=== PATIENT | female | born 2000 | race Hispanic/Latino ===

== ENCOUNTER 2020-10-18 18:42 | Outpatient (CLI) | payer OTHER ==
[~2020-10-18] VITALS: Ht 147.3 cm; Wt 67.3 kg
--- NOTE | 2020-10-18 19:30 | IPNPDOC ---
Obstetrical Progress Note Date of Service Oct 18, 2020 Subjective Ms. Pate is a 20yo at 39wk who presents for a labor check. She denied VB, LOF, decreased FM. Her contractions were initially every 20 min all day today and now they are every 10 minutes so she came in to be evaluated. Assessment Heart Rate (FHR): 140 Variability: Moderate Accelerations: Positive Decelerations: None Heart Rate Tracing: Category I Tocometer Contractions: Yes Frequency: irregular Sterile Vaginal Examination Dilation: None Station: -3 Cervical Consistency: Firm Cervical Position: Posterior Postion/Presentation: Cephalic presentation (by US) Assessment and Plan Additional Comments Ms. Pate is a 20yo at 39wk who presents for a labor check. VS normal. CAT I tracing, reactive. Irregular contractions on monitor. SVE C/T/H. Ceph by US. MVP 4cm. +FM on TAUS. Imminent active labor is unlikely at this time. Provided with routine OB return precautions. Otherwise to follow up at next KELSEY FREIRE DO Oct 18, 2020 19:30
--- NOTE | 2020-10-19 03:37 | REPVR ---
PROCEDURE INFORMATION: Exam: US Biophysical Profile Without Non-Stress Test Exam date and time: 10/18/2020 8:40 PM Age: 20 years old Clinical indication: Other: Fetus notmoving; ; Additional info: Bpp TECHNIQUE: Imaging protocol: US biophysical profile without non-stress testing. COMPARISON: No relevant prior studies available. FINDINGS: Gestation: Single intrauterine fetus. heart rate: heartbeat of 147 bpm. Presentation: Cephalic presentation. Placenta: Anterior placenta. Amniotic fluid index: Normal HERMES of 16.2 cm. BIOPHYSICAL PROFILE: Breathin/2 Gross body movements: 2/2 tone: 2/2 Qualitative amniotic fluid: 2/2 Biophysical Profile Score: 8/8 MATERNAL ANATOMY: Cervix: The cervix is closed measuring 4.0 cm. IMPRESSION: 1. Single live intrauterine fetus in cephalic presentation. 2. Normal HERMES of 16.2 cm. 3. Normal biophysical profile with score of 8/8. Electronically signed by: Mason Fuentes On 10/19/2020 03:38:20 AM
== END 2020-10-18 22:31 | disposition home or self-care (01) ==
LOC: M LDO 18:42
PROVIDERS: ATTEND Obstetrics & Gynecology
DX: O47.1 False labor at or after 37 completed weeks of gestation (principal); Z3A.39 39 weeks gestation of pregnancy
CPT/HCPCS: 59025; 76815; 76819; 76820; G0378; G0463

== ENCOUNTER 2020-11-17 16:59 | Outpatient (CLI) | payer OTHER ==
[~2020-11-17] VITALS: Ht 147.3 cm; Wt 70.0 kg
[2020-11-17 17:13] VITALS: BP 109/64
[2020-11-17] MEDS ORDERED: IRON1TAB2 PO (17:15)
[2020-11-17 18:31] VITALS: BP 99/63
== END 2020-11-17 18:46 | disposition home or self-care (01) ==
LOC: M LDO 16:59
PROVIDERS: ATTEND Registered Nurse
DX: O23.43 Unspecified infection of urinary tract in pregnancy, third trimester (principal); Z3A.35 35 weeks gestation of pregnancy; O99.013 Anemia complicating pregnancy, third trimester; D64.9 Anemia, unspecified; O98.313 Other infections with a predominantly sexual mode of transmission complicating pregnancy, third trimester; A63.0 Anogenital (venereal) warts
CPT/HCPCS: 59025; G0378; G0463

== ENCOUNTER 2020-11-29 10:44 | Inpatient (IN) | payer OTHER ==
[~2020-11-29] VITALS: Ht 147.3 cm; Wt 69.8 kg
[2020-11-29] VITALS (8 sets, daily range): BP systolic 105–135; BP diastolic 55–75
[~2020-11-29 10:44] MED LIST: IRON1TAB2 PO
[2020-11-29] MEDS ORDERED: VALT500T PO (12:05)
[2020-11-29] MEDS ORDERED: URSO300C3 PO (12:05)
--- NOTE | 2020-11-29 12:18 | HPEPDOC ---
Obstetrical History & Physical General Date of Admission November 29, 2020 at 10:44 History of Present Illness 20yo G1 at 37w2d ega, at 37w2d ega, by LMP c/w 1st trimester ultrasound, who pre sents for an IOL for presumed cholestasis of . Mrs. Pate presented to the clinic today reporting progressively worsening itching of the palms & soles over the past week. She also reported decreased movement over the past week. She also reports regular, painful uterine contractions. Otherwise, she denies VB & LOF. Chief Complaint: Other (Presumed cholestasis of ) Past Medical History Past Obstetrical History : Past Obstetrical History: Primgravida Past Medical History Medical History Genital Warts; HSV 1 & 2; Anemia of , Migraines with Aura Social History Marital Status: Family situation: Spouse/partner home Psychosocial History: No pertinent psych hx * Smoker: non-smoker Alcohol: Denies Drugs: denies Abuse Violence Screening Have you been hit/kicked/slapp: No Have you been sexually assault: No Imunizations Tdap status: current Influenza Status: current Medications Scheduled Ferrous Sulfate (Iron) 325 Mg Tablet, 1 TAB PO DAILY Physical Examination Physical Examination GENERAL: Alert and oriented times three. BREAST: . ABDOMEN: Gravid and non-tender to touch. FETUS: Is vertex (VTX) by sterile vaginal examination (SVE), fetus is vertex (VTX) by César. HEART RATE: Regular rate and rhythm. LUNGS: Clear to auscultation (CTA). EXTREMITIES: No edema. No clonus. Deep tendon reflexes (DTRs) SSE: Vesicular lesions on the cervix c/w a Primary HSV outbreak Vital Signs/I&O Vital Signs Date Time Temp Pulse Resp B/P (MAP) Pulse Ox O2 Delivery O2 Flow Rate FiO2 11/29/20 10:59 97.7 96 16 135/75 (95) Laboratory Data 24H LABS Laboratory Tests 2 11/29/20 10:56: Serology Scanned Report Hepatitis B Testing Pertinent Laboratoy Data Blood Type: A+ RBC Antibody Screen: Negative HIV: Negative Hepatitis B: Negative Hepatitis C: Negative Rapid Plasma Reagin: Immune Rubella: Immune Varicella: Immune Chlamydia/Gonorrhea: Negative Group B Streptococcus: Negative Quad Screen Test: Unknown Cystic Fibrosis: Unknown Anatomy Ultrasound Ultrasound Date: Nov 02, 2020 Placenta Location: Anterior Normal Anatomy: Yes Placenta Previa: No Steroid Therapy Steroid Therapy: No Assessment Heart Rate (FHR): 130 Variability: Moderate Accelerations: Positive Decelerations: None Tocometer Contractions: Yes Frequency: irregular Multi-drug resistant Organism: No history of MDRO Assessment/Plan Assessment Mrs. Pate is a 20-year-old G1 at 37+2weeks by LMP c/w 1st trimester ultrasound. Presents to Labor and Delivery (L&D) for IOL secondary to presumed cholestasis of . Patient was found to have vesicular cervical lesions with h/o + HSV 1 & 2 IgG. Will proceed to OR for a Primary Low Transverse Section. Plan Admit and orient. Career Development Coordinator and consent. Diet: NPO Group B Streptococcus (GBS) negative. Labs and intravenous (IV) per unit protocol. Counseled on Primary Low Transverse Section. Lactated Ringers (LR): at 125mL/hr. Anticipate Primary Low Transverse Pt was counseled on the R/B/I/A of PLTCS and agreed to move forward Ancef 2 grams iv x1 30 minutes prior to PLTCS BERE CLEARY M.D. November 29, 2020 12:18
[2020-11-29] MEDS ORDERED: TRANEXAMIC ACID INJection 1,000 MG in NS 100 ML IV PRN (12:20)
[2020-11-29] MEDS ORDERED: METHYLERGONOVINE MALEATE 0.2 MG/ML VIAL (J2210) IM PRN (12:20)
[2020-11-29] MEDS ORDERED: BICITRA 30ML SOLN UDC PO ONE (12:20)
[2020-11-29] MEDS ORDERED: CARBOPROST TROMETHAMINE 250 MCG/ML AMP IM PRN (12:20)
[2020-11-29] MEDS ORDERED: OXYTOCIN DRIP 30 UNITS in IV 1 EA IV PRN ×4 (12:20)
[2020-11-29] MEDS ORDERED: ACETAMINOPHEN 650 MG SUPP PR SCH (12:20)
[2020-11-29] MEDS ORDERED: ceFAZolin SOD 2 GM in IV 1 EA IV ONE (12:20)
[2020-11-29 13:00] LABS: HEMOGLOBIN 11.1 g/dl (12.0-15.5); MEAN CORPUSCULAR HEMOGLOBIN 28.8 pg (27.0-33.0); MEAN CORPUSCULAR HGB CONC 32.6 g/dl (32.0-36.5); MEAN CORPUSCULAR VOLUME 88.1 fl (80.0-96.0); PLATELET COUNT, AUTOMATED 233 10^3/uL (150-450); RED BLOOD COUNT 3.86 10^6/uL (4.00-5.40); WHITE BLOOD COUNT 11.3 10^3/uL (4.0-10.0)
[2020-11-29] MEDS: LR 1,000 ML IV SCH ×3 (13:17→18:15)
[2020-11-29] MEDS ORDERED: ONDANSETRON 4MG/2ML VIAL IV PRN ×2 (15:43→17:05)
[2020-11-29] MEDS ORDERED: NALBUPHINE HCL 10 MG/ML AMP (J2300) IV PRN (15:43)
[2020-11-29] MEDS ORDERED: diphenhydrAMINE 50MG/ML VIAL (J1200) IV PRN (15:43)
[2020-11-29] MEDS ORDERED: METOCLOPRAMIDE INJ 10MG/2ML VIAL (J2765 PER 1) IV PRN (15:43)
[2020-11-29] MEDS ORDERED: NALOXONE INJ 0.4MG/1ML VIAL (J2310 PER 1MG) IV PRN ×2 (15:43)
[2020-11-29] MEDS ORDERED: ONDANSETRON 4MG/2ML VIAL As Ordered ONE (15:44)
[2020-11-29] MEDS ORDERED: OXYTOCIN 30 UNITS IN 0.9% NaCl 500ML IV BAG (J2590) As Ordered ONE (15:44)
[2020-11-29] MEDS ORDERED: MORPHINE PRES-FREE INJ 10 MG/10 ML VIAL (J2274) As Ordered ONE (15:44)
[2020-11-29] MEDS ORDERED: ePHEDrine SULFATE 25 MG/5 ML(5MG/ML) SYRINGE As Ordered ONE (15:48)
[2020-11-29] MEDS ORDERED: KETOROLAC 60MG 2ML VIAL As Ordered ONE (15:52)
[2020-11-29] MEDS ORDERED: PHENYLephrine 500MCG 5ML (100MCG/ML) SYRINGE As Ordered ONE (15:53)
[2020-11-29] MEDS ORDERED: KETOROLAC 30 MG/ML 1ML VIAL IV PRN (16:10)
[2020-11-29] MEDS ORDERED: SWEET-EASE NATURAL PRES FREE SOLUTION 15ML UDC PO PRN (16:15)
[2020-11-29] MEDS ORDERED: HEPATITIS B VAC *BIRTH DOSE ONLY*(ENGERIX) 10 MCG/0.5 ML SYRINGE IM ONE (16:15)
[2020-11-29] MEDS ORDERED: PHYTONADIONE 1 MG/0.5 ML SYRINGE (J3430) IM ONE (16:15)
[2020-11-29] MEDS ORDERED: ERYTHROMYCIN OPHTH OINT OU ONE (16:15)
[2020-11-29] MEDS ORDERED: BREAST MILK 1 BOTTLE PO PRN (16:15)
[2020-11-29 16:43] LABS: CORD GAS ABE A -0.9; CORD GAS HCO3 A 26.1 MEQ/L; CORD GAS O2 SAT A 53.9 %; CORD GAS PCO2 A 52.4 mmHg; CORD GAS PH A 7.316 UNITS; CORD GAS SBC A 22.5 MEQ/L; CORD GAS TCO2 A 27.8 MEQ/L
[2020-11-29 16:46] LABS: CORD GAS ABE V -3.2; CORD GAS HCO3 V 22.1 MEQ/L; CORD GAS O2 SAT V 82.9 %; CORD GAS PCO2 V 40.9 mmHg; CORD GAS PH V 7.351 UNITS; CORD GAS PO2 V 39.3 mmHg; CORD GAS SBC V 21.4 MEQ/L; CORD GAS TCO2 V 23.4 MEQ/L
--- NOTE | 2020-11-29 16:53 | ROOPDOC ---
[facility] Report Of Operation Report of Operation DATE OF PROCEDURE: 29 Nov 2020 PREPROCEDURE DIAGNOSIS: - Term Intrauterine at 37w2d ega - Cholestasis Of - Active Herpes Outbreak POSTPROCEDURE DIAGNOSIS: - Same As Above, delivered via Primary Low Transverse Section PROCEDURE: - Primary Low Transverse Section SURGEON: Idris Garcia M.D., Ph.D. INSTALLER MOLDING AND TRIM: Bhavin Dickey D.O. ESTIMATED BLOOD LOSS: 800cc URINE OUTPUT: 100cc clear, yellow urine INTRAVENOUS FLUIDS: 1000cc Lactated Ringers COMPLICATIONS: None REMARKS: None Operative Findings: Delivery was productive of a viable male in the cephalic presentation weighing 2880grams with APGARS 9/9. Normal appearing uterus, fallopian tubes, and ovaries. 2-grams of Ancef and Bicitra were administered pre-operatively. PROCEDURE NOTE: The risks, benefits, and alternatives of the procedure were reviewed with the patient and informed consent was obtained. The patient was taken to the OR where spinal anesthesia was administered without difficulty. The patient was prepped and draped in the normal fashion in the dorsal supine position with a leftward tilt. A hair catheter was placed in the bladder and a final time out was performed. A Pfannenstiel skin incision was then made with the scalpel and carried through to the underlying layer of fascia. The fascia was incised in the midline and the incision extended laterally with the Hernandez scissors. The superior aspect of the fascial incision was grasped with the Dave clamps, elevated, and the underlying rectus dissected from the fascia with the Hernandez scissors. Attention was then turned to the inferior aspect of the incision, which, in a similar fashion was grasped, tented up with the Dave clamps and the rectus muscles dissected off aided with the Hernandez scissors. Rectus muscles were then in the midline; the peritoneum identified, tented up, and entered bluntly. The peritoneal incision was then extended horizontal with good visualization of the bladder. The bladder blade was inserted. The vesicoperitoneum was then identified, grasped with pick-ups and entered sharply with Metzenbaum scissors. This incision was then extended laterally and the bladder flap created digitally. The bladder blade was then reinserted. Next, the lower uterine segment was incised in a transverse fashion with the scalpel. The uterine incision was then extended manually. The amniotic sac was artificially ruptured, productive of clear fluid. The infant was found to be in the OA presentation. The infants head and body were delivered atraumatically through the hysterotomy. The nose and mouth were suctioned with the bulb syringe, and the cord doubly clamped and cut. The was handed off to the awaiting Pediatricians. Cord gases were obtained. The placenta was then removed spontaneously with gentle traction on the umbilical cord; the uterus was exteriorized and cleared of all clots and debris. The uterine incision was repaired with O-monocryl in a running, locked fashion. An imbricating layer was not performed secondary to extensive venous sinuses on the superior & inferior aspects of the hysterotomy. The ovaries and fallopian tubes appeared normal. The posterior cul-de-sac was then irrigated. The uterus was returned to the abdomen and the hysterotomy was again noted to be hemostatic. The paracolic gutters were cleared of all clots and debris. The fascia was then re-approximated with 0-vicryl in a running fashion. The subcutaneous tissue was reapproximated with three - interrupted 2-O monocryl sutures. The skin was closed with 3-O monocryl on a Anthony needle in a subcuticular fashion. The incision was then dressed with Steri-strips and a pressure dressing applied. At the completion of the case, bimanual exam was perf ormed with good uterine tone and minimal vaginal bleeding. The patient tolerated the procedure well. Sponge, lap and needle counts were correct times three. The patient was taken to the recovery room in stable condition. IDRIS GARCIA M.D. November 29, 2020 16:53
[2020-11-29] MEDS ORDERED: oxyCODONE 5MG TAB PO PRN ×3 (17:05→18:30)
[2020-11-29] MEDS ORDERED: fentaNYL 100 MCG/2 ML INJECTION (J3010) IV PRN (17:05)
[2020-11-29] MEDS ORDERED: ACETAMINOPHEN TAB 650MG DOSE (2X325MG) PO PRN (18:30)
[2020-11-29] MEDS ORDERED: SIMETHICONE 80MG CHEW TAB PO PRN (18:30)
[2020-11-29] MEDS ORDERED: ACETAMINOPHEN 500 MG TAB PO PRN (18:30)
[2020-11-29] MEDS ORDERED: DOCUSATE SODIUM 100MG CAPSULE PO PRN (18:30)
[2020-11-30] MEDS: IBUPROFEN 800 MG TAB PO SCH ×3 (00:19→16:36)
[2020-11-30 02:00] VITALS: BP 100/51
[2020-11-30] MEDS ORDERED: LR 500 ML IV ONE (02:40)
[2020-11-30 06:15] VITALS: BP 101/63
--- NOTE | 2020-11-30 07:26 | IPNPDOC ---
Progress Note Date of Service: November 30, 2020 Day#: 1 Progress Note SUBJECT: Mrs. Bora Pate is a 20-year-old 1 now Para 1-0-0-1 status post uncomplicated Primary Low Transverse Section at 37-2/7 weeks' on 29 Nov 2020 that was productive of a viable male infant. This patient is doing well day #1. She has been ambulating, passing flatus, and tolerating regular diet. Her Olivier catheter was recently removed and she has a 4-hour Due-To-Void. Breast feeding without issue. Reports lochia is like a normal period. OBJECTIVE: VITAL SIGNS: Within normal limits, afebrile. Alert and oriented times three. Abdomen: Fundus firm at U-1. Soft, NTTP, Incision is clean, dry, and intact with steri strips Moderate lochia. ASSESSMENT: Mrs. Pate is a 20-year-old 1 now Para 1-0-0-1 status post uncomplicated Primary Low Transverse Section after presenting for induction of labor for cholestasis of and was found to have active HSV lesions on her cervix. Overall, she is hemodynamically stable and doing well on day 1. PLAN: 1. Likely discharge to home on Friday, 01 Dec 2020. 2. Oxycodone, Tylenol and Motrin for pain. 3. Encourage breast feeding and ambulation. 4. Will use condoms for contraception. 5. Routine PP visit in 6 weeks in clinic. 6. Discussed return precautions at length. Soila Stringer., Ph.D. EDDI Staff VS, I&O, 24[facility], [facility] Vital Signs/I&O Vital Signs Date Time Temp Pulse Resp B/P (MAP) Pulse Ox O2 Delivery O2 Flow Rate FiO2 11/30/20 06:15 98.6 80 101/63 (76) 98 Room Air 11/30/20 02:00 16 I&O- Last 24 Hours up to 6 AM 11/30/20 06:00 Intake Total 2730 ml Output Total 1825 ml Balance 905 ml Laboratory Data 24H LABS Laboratory Tests 2 11/29/20 10:56: Serology Scanned Report Hepatitis B Testing 11/29/20 11:49: Coronavirus (COVID-19)(PCR) NEGATIVE 11/29/20 12:42: Nucleated Red Blood Cells % (auto) 0.0 11/29/20 13:02: Syphilis Serology NONREACTIVE, Hepatitis B Surface Antigen NEGATIVEL 11/29/20 16:17: Cord Arterial Blood pH 7.316, Cord Arterial Blood PCO2 52.4, Cord Arterial Blood PO2 24.0, Cord Arterial Blood HCO3 26.1, Cord Arterial Blood Total CO2 27.8, Cord Arterial Blood Base Excess -0.9, Cord Arterial Base Excess (Standard 22.5, Cord Arterial Bld Oxygen Saturation 53.9, Cord Venous Blood pH 7.351, Cord Venous Blood PCO2 40.9, Cord Venous Blood PO2 39.3, Cord Venous Blood HCO3 22.1, Cord Venous Blood Total CO2 23.4, Cord Venous Base Excess (Actual) -3.2, Cord Venous Base Excess (Standard) 21.4, Cord Venous Blood Oxygen Saturation 82.9 CBC/BMP Laboratory Tests 11/29/20 12:42 BERE CLEARY M.D. November 30, 2020 07:26
[2020-11-30 08:31] LABS: HEMATOCRIT 24.9 % (36.0-47.0); MEAN CORPUSCULAR HEMOGLOBIN 28.5 pg (27.0-33.0); MEAN CORPUSCULAR HGB CONC 31.7 g/dl (32.0-36.5); MEAN CORPUSCULAR VOLUME 89.9 fl (80.0-96.0); PLATELET COUNT, AUTOMATED 169 10^3/uL (150-450); RED BLOOD COUNT 2.77 10^6/uL (4.00-5.40); WHITE BLOOD COUNT 10.5 10^3/uL (4.0-10.0)
[2020-11-30 08:32] LABS: HEMOGLOBIN 7.9 g/dl (12.0-15.5)
[2020-11-30] MEDS: PRENATAL VITAMINS CHEWABLE TABLET PO SCH (08:45)
[2020-11-30 10:00] VITALS: BP 109/59
[2020-11-30] MEDS: LR 1,000 ML IV SCH (11:10)
[2020-11-30] MEDS: valACYclovir HCL 500 MG TAB PO SCH ×2 (13:42→21:01)
[2020-11-30] MEDS: FERROUS SULFATE 325MG TAB PO SCH ×3 (13:42→21:01)
[2020-11-30 14:00] VITALS: BP 99/59
[2020-11-30 18:00] VITALS: BP 94/56
[2020-11-30] MEDS ORDERED: IBUPROFEN 800 MG TAB PO SCH (20:30)
[2020-11-30 22:00] VITALS: BP 108/56
[2020-12-01] MEDS: IBUPROFEN 800 MG TAB PO SCH ×2 (00:35→08:21)
[2020-12-01 02:00] VITALS: BP 102/53
[2020-12-01 05:53] VITALS: BP 98/52
[2020-12-01] MEDS ORDERED: IBUP80TA PO (07:18)
--- NOTE | 2020-12-01 07:25 | DS.PDOC ---
Discharge Summary General Date of Admission November 29, 2020 at 10:44 Date of Discharge December 01, 2020 Discharge Summary \ HOSPITAL COURSE: Ms. Pate is a 20 yo G1 now P1 who underwent an uncomplicated PLTCS on 29Nov2020 after presenting with an active primary HSV genital outbreak in the setting of presumed cholestasis of . Her postopartum course was unremarkable. On her day of discharge she met all appropriate discharge criteria. She was ambulating with dizziness, SOB, or fatigue, voiding on her own, tolerating a regular diet, passing gas, and had minimal lochia. Infant transferred to [facility] for observation due to active maternal HSV at the time of delivery. DISCHARGE MEDICATIONS: Please see below. ALLERGIES: Please see below. PHYSICAL EXAMINATION ON DISCHARGE: VITAL SIGNS: Please see below. GENERAL: AAOX3, NAD ABDOMINAL EXAMINATION: Fundus firm at U-2. No fundal tenderness. Incision well appearing and steri strips intact. No erythema, induration, or signs of infection or dehiscence. No tenderness to palpation at incision. EXTREMITIES: Mild edema, much improved. PSYCHIATRIC EXAMINATION: Affect appropriate LABORATORY DATA: Please see below. ACTIVITY: Pelvic rest for 6 weeks. No heavy lifting for 6 weeks DIET: Regular DISCHARGE PLAN: Discharge home DISPOSITION: Discharge home on 01Dec2020 DISCHARGE INSTRUCTIONS: 1. Nothing in the vagina for 6 weeks 2. No heavy lifting for 6 weeks ITEMS TO FOLLOWUP ON ON OUTPATIENT: 1. follow up incision check at [facility] in 2 weeks 2. yeast supervisor medication at [facility] DISCHARGE CONDITION: Stable. TIME SPENT ON DISCHARGE: Greater than 20 minutes. Shaheed Costa, Vital Signs/I&Os Vital Signs Date Time Temp Pulse Resp B/P (MAP) Pulse Ox O2 Delivery O2 Flow Rate FiO2 12/01/20 05:53 97.9 76 16 98/52 (67) 100 Room Air I&O- Last 24 Hours up to 6 AM 12/01/20 06:00 Output Total 650 ml Balance -650 ml Laboratory Data Labs 24H Laboratory Tests 2 11/30/20 07:45: Nucleated Red Blood Cells % (auto) 0.0 CBC/BMP Laboratory Tests 11/30/20 07:45 Discharge Medications Scheduled Ferrous Sulfate (Iron) 325 Mg Tablet, 1 TAB PO DAILY, (Reported) Ibuprofen (Ibuprofen) 800 Mg Tablet, 800 MG PO Q8H Valacyclovir HCl (Valtrex) 500 Mg Tablet, 500 MG PO BID, (Reported) Allergies Coded Allergies: No Known Allergies (Unverified , 11/29/20) SHAHEED COSTA DO December 01, 2020 07:25
[2020-12-01 08:15] LABS: HEMATOCRIT 28.8 % (36.0-47.0); MEAN CORPUSCULAR HGB CONC 31.3 g/dl (32.0-36.5); MEAN CORPUSCULAR VOLUME 89.4 fl (80.0-96.0); PLATELET COUNT, AUTOMATED 234 10^3/uL (150-450); RED BLOOD COUNT 3.22 10^6/uL (4.00-5.40); WHITE BLOOD COUNT 11.2 10^3/uL (4.0-10.0)
[2020-12-01] MEDS: valACYclovir HCL 500 MG TAB PO SCH (08:21)
[2020-12-01] MEDS: PRENATAL VITAMINS CHEWABLE TABLET PO SCH (08:21)
[2020-12-01] MEDS: FERROUS SULFATE 325MG TAB PO SCH (08:21)
== END 2020-12-01 08:45 | disposition home or self-care (01) | DRG 771 ==
LOC: M LDI 10:44 → M OBS 18:43
PROVIDERS: ADMIT Registered Nurse Maternal Newborn; ATTEND Obstetrics & Gynecology Reproductive Endocrinology
PROC: 10D00Z1 Extraction of Products of Conception, Low, Open Approach (ICD-10-PCS; principal; 2020-11-29 15:32)
DX: O26.62 Liver and biliary tract disorders in childbirth (principal); K83.1 Obstruction of bile duct; O98.32 Other infections with a predominantly sexual mode of transmission complicating childbirth; A60.09 Herpesviral infection of other urogenital tract; O99.02 Anemia complicating childbirth; D64.9 Anemia, unspecified; Z37.0 Single live birth; Z3A.37 37 weeks gestation of pregnancy